=== PATIENT | male | born 1960 | race Caucasian/White ===

== ENCOUNTER 2017-04-02 13:08 | Outpatient (CLI) | payer MEDICAID ==
[~2017-04-02 13:08] MED LIST: NO HOME MEDS
[2017-04-02 13:10] VITALS: BP 120/80
== END 2017-04-02 14:00 | disposition home or self-care (01) ==
LOC: ORTHO 13:08
PROVIDERS: ATTEND Nurse Practitioner Family
DX: S52.502A Unspecified fracture of the lower end of left radius, initial encounter for closed fracture (principal); F17.210 Nicotine dependence, cigarettes, uncomplicated; G56.00 Carpal tunnel syndrome, unspecified upper limb; W01.0XXD Fall on same level from slipping, tripping and stumbling without subsequent striking against object, subsequent encounter
CPT/HCPCS: 29075; A4590

== ENCOUNTER 2017-04-23 14:49 | Outpatient (CLI) | payer MEDICAID ==
[2017-04-23 14:44] VITALS: BP 131/79
== END 2017-04-23 15:10 | disposition home or self-care (01) ==
LOC: ORTHO 14:49
PROVIDERS: ATTEND Nurse Practitioner Family
DX: S52.502G Unspecified fracture of the lower end of left radius, subsequent encounter for closed fracture with delayed healing (principal); F17.210 Nicotine dependence, cigarettes, uncomplicated; G56.00 Carpal tunnel syndrome, unspecified upper limb; W01.0XXD Fall on same level from slipping, tripping and stumbling without subsequent striking against object, subsequent encounter
CPT/HCPCS: 29260; 73110